=== PATIENT | male | born 1945 | race Caucasian/White ===

== ENCOUNTER 2017-02-27 17:04 | Emergency (ER) | payer OTHER ==
[2017-02-27] MEDS ORDERED: ASPIRIN 81 MG TAB.CHEW PO ONE (17:09)
[2017-02-27] MEDS ORDERED: ASPIRIN 81 MG TAB.CHEW ONE (17:12)
--- NOTE | 2017-02-27 17:26 | ERNOTE ---
Chest Pain/Cardiac HPI Date of Service: 02/27/17 Chief Complaint: Chest Pain Time Seen by Provider: 02/27/17 17:16 Source: patient Exam Limitations: no limitations Immunizations: IMMUNIZATION HX Immunizations Up to Date Yes Allergies/Adverse Reactions: Allergies JAKOB Inhibitors Allergy (Verified 02/27/17 17:19) chlorpromazine [From Thorazine] Allergy (Verified 02/27/17 17:19) Ccdsmpn-Bdk-Usl Reductase Inhibitor Adverse Reaction (Verified 02/27/17 17:19) Home Medications: HOME MEDICATIONS Acetaminophen [Tylenol] 325 mg PO PRN PRN 02/27/17 [Last Taken Unknown] Amlodipine Besylate 10 mg PO DAILY 02/27/17 [Last Taken Unknown] Aspirin 81 mg PO DAILY 02/27/17 [Last Taken Unknown] Levothyroxine Sodium [Synthroid] 150 mcg PO DAILY 02/27/17 [Last Taken Unknown] Losartan Potassium [Cozaar] 100 mg PO DAILY 02/27/17 [Last Taken Unknown] Niacin 500 mg PO DAILY 02/27/17 [Last Taken Unknown] Nitroglycerin 0.4 mg SL Q5MIN 02/27/17 [Last Taken Unknown] [place]-3 Fatty Acids/Fish Oil [Fish Oil 1,000 mg Capsule] 1 cap PO DAILY [Last Taken Unknown] Ranitidine HCl [Zantac] 300 mg PO HS 02/27/17 [Last Taken Unknown] cloNIDine [Catapres-Tts 2] 0.2 mg TD DAILY 02/27/17 [Last Taken Unknown] Narrative: Pt. comes in with c/o L apical chest pain for 6 hours. Pt. denies any radiation of pain, fever, SOB, NVD, recent illness or injury. Pt. states that he has a hx of cardiac stents x 2 with the last being 5 years ago. Pt. is an inmate and he received one 81 mg asa. Timing: intermittent Severity/Quality: aching Location: left chest Modifying Factors - Improves: Present: nothing Modifying Factors - Worsens: Present: nothing Nitro Today/Relief: no nitro taken today Aspirin Treatment Today: 81 mg x 1 Review of Systems - Review of Systems Constitutional: Present: no symptoms reported. Absent: recent illness, fever, chills, weakness, fatigue, malaise EYE: Present: no symptoms reported ENT: Present: no symptoms reported Respiratory: Present: no symptoms reported. Absent: shortness of breath, cough , wheezing Cardiology: Present: chest pain. Absent: palpitations, edema Gastrointestinal/Abdominal: Present: no symptoms reported. Absent: nausea, vomiting, diarrhea Genitourinary: Present: no symptoms reported Musculoskeletal: Present: no symptoms reported. Absent: back pain, joint pain Skin: Present: no symptoms reported. Absent: rash, change in color, change in hair/nails Neurological: Present: no symptoms reported. Absent: headache, dizziness/light- headedness, numbness, tingling All Other Systems: All systems neg except as marked - Patient's Past Medical History Patient History - Medical: No pertinent hx Patient History - Cardiac/Respiratory: Coronary Heart Disease Patient History - Cancer: No Hx of Cancer Patient History - Surgical Procedures: Cardiac stent, Total Knee Replacement Patient History - Other: None - Social History Living Situations: home Psych History: No pertinent hx Smoking Status: Never smoker Alcohol Use: none Drug Use: none - Immunizations Immunizations Up to Date: Yes Physical Exam - Physical Exam General Appearance: Present: wd/wn, alert, no apparent distress Head Exam: Present: normal inspection, no evidence of injury Eye Exam: Normal inspection: bilateral, PERRL: bilateral, EOMI: bilateral Respiratory: Present: no respiratory distress, normal breath sounds, no accessory muscle use, chest nontender, lungs clear Cardiovascular/Chest: Present: regular rate, rhythm, no murmur, normal peripheral pulses Gastrointestinal/Abdominal: Present: normal bowel sounds, nontender, nondistended, soft, no organomegaly Back Exam: Present: normal inspection, normal range of motion, no CVA tenderness , no vertebral tenderness Extremity Exam: Present: normal inspection, non-tender, normal range of motion, no edema Neurological Exam: Present: alert, oriented, normal mood/affect, no motor/ sensory deficits Skin Exam: Present: normal color, warm/dry. Absent: pallor, skin rash ED Progress - Date and Time Seen: Date and Time: 02/27/17 18:[address] Burns and we both feel that pt. needs admitted for rule out chest pain. Discussed with Dr Sebastian at [facility] as pt. is [employer] inmate pt. will go to [facility] and he accepts pt. He requests pt. have Nitro drip titrated to lower BP prior to transfer. - Results and Orders Patient's Lab Results:: I have reviewed the patient's lab results. - Vital Signs Patient's Vital Signs:: I have reviewed the patient's vital signs. Vital Signs: Vital Signs 02/27/17 17:06 Temperature 37.7 C H Pulse Rate 69 Respiratory 17 Rate Blood Pressure 145/109 O2 Sat by Pulse 95 Oximetry - EKG EKG: nonspecific ST T wave changes, other - left axis deviationsinus arrrhythmia with U waves and IVCD EKG read: Reviewed by me EKG Comments: Interp by Dr Burns - X-Ray X-Ray #1 X-Ray: chest Interpretation: Interp. by me X-ray Comments: cardiomegaly no acute abnormality. - Progress/Reassessment Chief Complaint: Chest Pain Departure Clinical Impression: Chest pain Qualifiers: Chest pain type: unspecified Qualified Code(s): R07.9 - Chest pain, unspecified - Departure Disposition: [facility] Condition: Fair Critical Care Time - Critical Care Critical Time Spent:: No Total time (mins) Spent:: 0
[2017-02-27 17:27] LABS: Hemoglobin 14.6 gm/dL (13.5-18.0); Mean Cell Volume 91.9 fl (78-100); Mean Corpuscular Hemoglobin 31.2 pg (27-31); Mean Platelet Volume 10.3 fl (6.0-9.5); Neutrophil # 2.8 K/mm3 (1.3-6.0); Platelet Count 205 K/mm3 (150-450); Red Blood Count 4.68 M/mm3 (4.7-6.0); Red Cell Distribution Width 13.6 % (11.5-14.0); White Blood Count 6.2 K/mm3 (4.0-10.5)
[2017-02-27 17:37] LABS: Prothrombin Time (Patient) 9.4 Seconds (9.0-11.0)
[2017-02-27 17:40] LABS: INR 0.94 INR (0.90-1.10)
[2017-02-27 17:41] LABS: Partial Thrombolplastin Time 27.5 Seconds (24-32)
[2017-02-27 17:43] LABS: ALT 29 U/L (19-67); AST 17 U/L (0-48); Alkaline Phosphatase * 91 U/L (50-170); Anion Gap 11.6 mmol/L (6.8-13.8); BUN/Creatinine Ratio 18.3 (9.0-21.6); Bilirubin, Total 0.4 mg/dL (0.0-1.1); Blood Urea Nitrogen 17 mg/dL (6-23); Ca. Corrected For Albumin 9.2 mg/dL (8.4-10.2); Calcium * 9.5 mg/dL (7.9-10.9); Carbon Dioxide 30.7 mmol/L (24-32.6); Chloride 105 mmol/L (97-106); Glucose * 103 mg/dL (70-110); Potassium 4.3 mmol/L (3.4-4.6); Sodium 143 mmol/L (132-142); Total Protein 7.7 gm/dL (6.2-8.2)
[2017-02-27 17:44] LABS: Troponin I Less than 0.017 ng/ml (0.00-0.10)
[2017-02-27] MEDS: NITROGLYCERIN 0.4 MG/TAB BTL SL PRN ×2 (18:03→18:13)
[2017-02-27] MEDS ORDERED: NITROGLYCERIN IN 5 % DEXTROSE 50 MG/250 ML INFUS..BTL IV PRN (18:23)
[2017-02-27] MEDS ORDERED: NORMAL SALINE 1,000 ML IV ONE (18:43)
[2017-02-27 19:06] VITALS: BP 159/101
== END 2017-02-27 19:15 | disposition short-term general hospital (02) ==
LOC: ER 17:04
DX: R07.9 Chest pain, unspecified (principal); Z95.5 Presence of coronary angioplasty implant and graft